=== PATIENT | female | born 1970 | race Two or more races ===

== ENCOUNTER 2020-07-21 10:42 | Inpatient (IN) | payer MEDICAID ==
[~2020-07-21] VITALS: Ht 167.6 cm; Wt 105.8 kg
[~2020-07-21 10:42] MED LIST: ARIP400S IM
[2020-07-22 17:12] VITALS: BP 143/71
[2020-07-22] MEDS: LORazepam 2 MG TABLET PO PRN (17:20)
[2020-07-22] MEDS: HALOPERIDOL 5 MG TABLET PO PRN (17:20)
[2020-07-22] MEDS ORDERED: PNEUMOCOCCAL VACCINE POLYVALENT 0.5 ML VIAL [PPSV23] IM ONE (17:45)
[2020-07-22] MEDS: AmLODIPine BESYLATE 2.5 MG TABLET PO SCH (18:44)
[2020-07-22 21:26] LABS: GLUCOMETER DEV NAME(LOC) BV3S.; GLUCOSE,POINT OF CARE 171 MG/DL (70-110)
[2020-07-23 04:06] VITALS: BP 128/76
[2020-07-23 06:30] LABS: GLUCOMETER DEV NAME(LOC) BV3S.; GLUCOSE,POINT OF CARE 138 MG/DL (70-110)
[2020-07-23] MEDS ORDERED: PETROLATUM,WHITE 28 GM JELLY TP PRN (08:00)
[2020-07-23] MEDS ORDERED: LOPERAMIDE HCL 2 MG CAPSULE PO PRN (08:00)
[2020-07-23] MEDS ORDERED: ALBUTEROL SULFATE HFA 90 MCG/PUFF 8 GM INHALER IH PRN (08:00)
[2020-07-23] MEDS ORDERED: CloNIDine HCL 0.1 MG TABLET PO PRN (08:00)
[2020-07-23] MEDS ORDERED: GuaiFENesin/D-METHORPHAN [SUGAR-FREE] 200-20MG/10 ML SYRUP UDCUP PO PRN (08:00)
[2020-07-23] MEDS ORDERED: NICOTINE 14 MG/24 HOUR PATCH TD PRN (08:00)
[2020-07-23] MEDS ORDERED: MAGNESIUM HYDROXIDE SUSPENSION 30 ML UDCUP PO PRN (08:00)
[2020-07-23] MEDS ORDERED: DOCUSATE SODIUM 100 MG CAPSULE PO PRN (08:00)
[2020-07-23] MEDS ORDERED: ONDANSETRON HCL 4 MG TABLET PO PRN (08:00)
[2020-07-23] MEDS ORDERED: MAG HYDROX/AL HYDROX/SIMETH ES 30 ML SUSPENSION UDCUP PO PRN (08:00)
[2020-07-23 08:25] VITALS: BP 150/68
[2020-07-23] MEDS: AmLODIPine BESYLATE 2.5 MG TABLET PO SCH (08:29)
[2020-07-23] MEDS: CEPHALEXIN MONOHYDRATE 500 MG CAPSULE PO SCH ×3 (08:29→17:05)
[2020-07-23] MEDS: IBUPROFEN 400 MG TABLET PO PRN (09:08)
[2020-07-23] MEDS: LORazepam 2 MG TABLET PO PRN (12:04)
[2020-07-23] MEDS: HALOPERIDOL 5 MG TABLET PO PRN (12:04)
[2020-07-23] MEDS: ACETAMINOPHEN 325 MG TABLET PO PRN (12:04)
[2020-07-23] MEDS: ARIPiprazole 10 MG TABLET PO SCH (12:06)
[2020-07-23] MEDS ORDERED: DEXTROSE 50%-WATER 25 GM/50 ML SYRINGE IVP PRN (15:30)
[2020-07-23 16:07] VITALS: BP 140/91
[2020-07-23 16:43] LABS: GLUCOMETER DEV NAME(LOC) BV3S.; GLUCOSE,POINT OF CARE 138 MG/DL (70-110)
[2020-07-23 20:19] LABS: GLUCOMETER DEV NAME(LOC) BV3S.; GLUCOSE,POINT OF CARE 147 MG/DL (70-110)
[2020-07-23] MEDS: INSULIN LISPRO 100 UNITS/ML SQ PRN (21:08)
[2020-07-24 03:31] VITALS: BP 125/73
[2020-07-24 06:53] LABS: GLUCOMETER DEV NAME(LOC) BV3S.; GLUCOSE,POINT OF CARE 142 MG/DL (70-110)
[2020-07-24] MEDS: INSULIN LISPRO 100 UNITS/ML SQ PRN (06:55)
[2020-07-24 08:12] VITALS: BP 130/82
[2020-07-24] MEDS: LORazepam 2 MG TABLET PO PRN (08:27)
[2020-07-24] MEDS: ARIPiprazole 10 MG TABLET PO SCH (08:27)
[2020-07-24] MEDS: HALOPERIDOL 5 MG TABLET PO PRN (08:27)
[2020-07-24] MEDS: AmLODIPine BESYLATE 2.5 MG TABLET PO SCH (08:27)
[2020-07-24] MEDS: LEVOFLOXACIN 500 MG TABLET PO SCH (08:27)
[2020-07-24 11:03] LABS: GLUCOMETER DEV NAME(LOC) BV3S.; GLUCOSE,POINT OF CARE 115 MG/DL (70-110)
[2020-07-24 12:05] VITALS: BP 139/72
[2020-07-24] MEDS: IBUPROFEN 400 MG TABLET PO PRN (12:09)
[2020-07-24 13:10] VITALS: BP 132/70
[2020-07-24 16:03] VITALS: BP 130/83
[2020-07-24 16:21] LABS: GLUCOMETER DEV NAME(LOC) BV3S.; GLUCOSE,POINT OF CARE 130 MG/DL (70-110)
[2020-07-24] MEDS: MUPIROCIN CALCIUM 2% 22 GM OINTMENT NASAL SCH (19:30)
[2020-07-24] MEDS: ZOLPIDEM TARTRATE 10 MG TABLET PO PRN (22:39)
[2020-07-24 23:09] LABS: GLUCOMETER DEV NAME(LOC) BV3S.; GLUCOSE,POINT OF CARE 164 MG/DL (70-110)
[2020-07-25 02:38] VITALS: BP 127/78
[2020-07-25] MEDS: LORazepam 2 MG TABLET PO PRN ×2 (08:31→20:42)
[2020-07-25] MEDS: ARIPiprazole 10 MG TABLET PO SCH (08:31)
[2020-07-25] MEDS: LEVOFLOXACIN 500 MG TABLET PO SCH (08:31)
[2020-07-25] MEDS: AmLODIPine BESYLATE 2.5 MG TABLET PO SCH (08:31)
[2020-07-25] MEDS: MUPIROCIN CALCIUM 2% 22 GM OINTMENT NASAL SCH ×2 (08:32→16:24)
[2020-07-25 08:55] VITALS: BP 114/69
[2020-07-25] MEDS: INSULIN LISPRO 100 UNITS/ML SQ PRN ×2 (11:54→21:06)
[2020-07-25 12:03] LABS: GLUCOMETER DEV NAME(LOC) BV3S.; GLUCOSE,POINT OF CARE 173 MG/DL (70-110)
[2020-07-25] MEDS ORDERED: DiphenhydrAMINE HCL 50 MG/ML VIAL ONE (15:09)
[2020-07-25] MEDS ORDERED: LORazepam 2 MG/ML VIAL ONE (15:09)
[2020-07-25] MEDS ORDERED: HALOPERIDOL LACTATE 5 MG/ML VIAL ONE (15:09)
[2020-07-25] MEDS ORDERED: LORazepam 2 MG/ML VIAL IM ONE (15:10)
[2020-07-25] MEDS ORDERED: HALOPERIDOL LACTATE 5 MG/ML VIAL IM ONE (15:10)
[2020-07-25] MEDS ORDERED: DiphenhydrAMINE HCL 50 MG/ML VIAL IM ONE (15:10)
[2020-07-25 16:03] VITALS: BP 125/88
[2020-07-25 16:34] LABS: GLUCOMETER DEV NAME(LOC) BV3S.; GLUCOSE,POINT OF CARE 140 MG/DL (70-110)
[2020-07-25 20:30] LABS: GLUCOMETER DEV NAME(LOC) BV3S.; GLUCOSE,POINT OF CARE 168 MG/DL (70-110)
[2020-07-26 08:05] VITALS: BP 132/74
[2020-07-26] MEDS: MUPIROCIN CALCIUM 2% 22 GM OINTMENT NASAL SCH ×2 (08:18→17:05)
[2020-07-26] MEDS: LEVOFLOXACIN 500 MG TABLET PO SCH (08:18)
[2020-07-26] MEDS: ARIPiprazole 10 MG TABLET PO SCH (08:18)
[2020-07-26] MEDS: AmLODIPine BESYLATE 2.5 MG TABLET PO SCH (08:18)
[2020-07-26] MEDS: LORazepam 2 MG TABLET PO PRN ×2 (08:19→17:31)
[2020-07-26 11:04] LABS: GLUCOMETER DEV NAME(LOC) BV3S.; GLUCOSE,POINT OF CARE 148 MG/DL (70-110)
[2020-07-26] MEDS: INSULIN LISPRO 100 UNITS/ML SQ PRN ×3 (11:24→20:41)
[2020-07-26 16:14] VITALS: BP 112/65
[2020-07-26] MEDS: HALOPERIDOL 5 MG TABLET PO PRN (17:31)
[2020-07-26 18:17] LABS: GLUCOMETER DEV NAME(LOC) BV3S.; GLUCOSE,POINT OF CARE 191 MG/DL (70-110)
[2020-07-26 20:38] LABS: GLUCOMETER DEV NAME(LOC) BV3S.; GLUCOSE,POINT OF CARE 157 MG/DL (70-110)
[2020-07-26] MEDS: ZOLPIDEM TARTRATE 10 MG TABLET PO PRN (20:39)
[2020-07-27 03:42] VITALS: BP 106/66
[2020-07-27 08:20] VITALS: BP 121/79
[2020-07-27] MEDS: ARIPiprazole 15 MG TABLET PO SCH (08:35)
[2020-07-27] MEDS: MUPIROCIN CALCIUM 2% 22 GM OINTMENT NASAL SCH ×2 (08:35→16:26)
[2020-07-27] MEDS: AmLODIPine BESYLATE 2.5 MG TABLET PO SCH (08:36)
[2020-07-27] MEDS: LEVOFLOXACIN 500 MG TABLET PO SCH (08:36)
[2020-07-27] MEDS: HALOPERIDOL 5 MG TABLET PO PRN (12:54)
[2020-07-27] MEDS: LORazepam 2 MG TABLET PO PRN (12:54)
[2020-07-27 16:10] VITALS: BP 118/74
[2020-07-27 16:37] LABS: GLUCOMETER DEV NAME(LOC) BV3S.; GLUCOSE,POINT OF CARE 104 MG/DL (70-110)
[2020-07-28 06:04] VITALS: BP 127/79
[2020-07-28 06:15] LABS: GLUCOMETER DEV NAME(LOC) BV3S.; GLUCOSE,POINT OF CARE 168 MG/DL (70-110)
[2020-07-28] MEDS: IBUPROFEN 400 MG TABLET PO PRN ×2 (06:16→20:30)
[2020-07-28 06:58] LABS: EOSINOPHILS % (AUTO) 9.3 % (1.0-6.0); HEMATOCRIT 41.2 % (36-46); HEMOGLOBIN 13.4 g/dL (12.0-16.0); LYMPHOCYTES # (AUTO) 2.1 K/uL (1.0-4.8); LYMPHOCYTES % (AUTO) 33.3 % (22.0-44.0); MEAN CORPUSCULAR HEMOGLOBIN 25.5 pg (26.0-34.0); MEAN CORPUSCULAR HGB CONC 32.6 G/dL (31.0-37.0); MEAN CORPUSCULAR VOLUME 78 fL (80-100); MONOCYTES # (AUTO) 0.6 K/uL (0.1-1.0); MONOCYTES % (AUTO) 9.1 % (2.0-9.0); NEUTROPHILS % (AUTO) 47.3 % (40.0-70.0); PLATELET COUNT (AUTO) 286 K/uL (150-450); RED BLOOD CELL COUNT(AUTO) 5.25 MIL/uL (4.00-5.20); RED CELL DISTRIBUTION WIDTH 16.1 % (11.5-14.5)
[2020-07-28 07:27] LABS: HEMOGLOBIN A1C 7.2 % (3.8-5.6)
[2020-07-28 07:34] LABS: ALANINE AMINOTRANSFERASE 60 U/L (12-78); ALBUMIN 3.3 g/dL (3.4-5.0); ALKALINE PHOSPHATASE 106 U/L (46-116); ANION GAP 5 mmol/L (8-16); ASPARTATE AMINOTRANSFERASE 33 U/L (15-37); BILIRUBIN,TOTAL 0.5 mg/dL (0.1-1.0); CARBON DIOXIDE 25 mmol/L (22-29); CHLORIDE 102 mmol/L (98-107); CREATININE 0.73 mg/dL (0.60-1.30); GLOMERULAR FILTR. RATE CALC > 60 mL/min (>60); GLUCOSE,RANDOM 164 mg/dL (70-110); HCG,QUANTITATIVE 2 mIU/mL (0-6); SODIUM SERUM 132 mmol/L (136-145); TOTAL PROTEIN, SERUM 7.3 g/dL (6.4-8.2); UREA NITROGEN, BLOOD 16 mg/dL (7-18)
[2020-07-28] MEDS: ARIPiprazole 15 MG TABLET PO SCH (08:12)
[2020-07-28] MEDS: AmLODIPine BESYLATE 2.5 MG TABLET PO SCH (08:12)
[2020-07-28] MEDS: LEVOFLOXACIN 500 MG TABLET PO SCH (08:12)
[2020-07-28] MEDS: MUPIROCIN CALCIUM 2% 22 GM OINTMENT NASAL SCH ×2 (08:13→17:19)
[2020-07-28 08:18] VITALS: BP 120/74
[2020-07-28 11:14] LABS: GLUCOMETER DEV NAME(LOC) BV3S.; GLUCOSE,POINT OF CARE 127 MG/DL (70-110)
[2020-07-28 17:02] VITALS: BP 132/81
[2020-07-28] MEDS: INSULIN LISPRO 100 UNITS/ML SQ PRN (17:30)
[2020-07-28] MEDS: HALOPERIDOL 5 MG TABLET PO PRN (17:31)
[2020-07-28] MEDS: LORazepam 2 MG TABLET PO PRN (17:31)
[2020-07-28] MEDS: ACETAMINOPHEN 325 MG TABLET PO PRN (17:37)
[2020-07-28 17:41] LABS: GLUCOMETER DEV NAME(LOC) BV3S.; GLUCOSE,POINT OF CARE 201 MG/DL (70-110)
[2020-07-28] MEDS: ZOLPIDEM TARTRATE 10 MG TABLET PO PRN (20:16)
[2020-07-28] MEDS: DIVALPROEX SODIUM 500 MG DR TABLET PO SCH (20:32)
[2020-07-28 20:34] LABS: GLUCOMETER DEV NAME(LOC) BV3S.; GLUCOSE,POINT OF CARE 182 MG/DL (70-110)
[2020-07-29 01:04] VITALS: BP 128/79
[2020-07-29] MEDS ORDERED: GLUCAGON,HUMAN RECOMBINANT 1 MG VIAL IM PRN ×2 (01:15→01:45)
[2020-07-29] MEDS ORDERED: INSULIN LISPRO 100 UNITS/ML SQ PRN (01:15)
[2020-07-29 06:38] LABS: GLUCOMETER DEV NAME(LOC) BV3S.; GLUCOSE,POINT OF CARE 136 MG/DL (70-110)
[2020-07-29 08:30] VITALS: BP 121/67
[2020-07-29] MEDS: AmLODIPine BESYLATE 2.5 MG TABLET PO SCH (08:55)
[2020-07-29] MEDS: ARIPiprazole 15 MG TABLET PO SCH (08:55)
[2020-07-29] MEDS: DIVALPROEX SODIUM 500 MG DR TABLET PO SCH ×2 (08:55→20:08)
[2020-07-29] MEDS: MUPIROCIN CALCIUM 2% 22 GM OINTMENT NASAL SCH ×2 (08:55→16:35)
[2020-07-29] MEDS: LORazepam 2 MG TABLET PO PRN ×2 (09:27→17:17)
[2020-07-29 12:00] LABS: GLUCOMETER DEV NAME(LOC) BV3S.; GLUCOSE,POINT OF CARE 131 MG/DL (70-110)
[2020-07-29 16:15] VITALS: BP 142/83
[2020-07-29 16:51] LABS: GLUCOMETER DEV NAME(LOC) BV3S.; GLUCOSE,POINT OF CARE 173 MG/DL (70-110)
[2020-07-29] MEDS: INSULIN LISPRO 100 UNITS/ML SQ PRN (17:19)
[2020-07-29] MEDS: IBUPROFEN 400 MG TABLET PO PRN (18:49)
[2020-07-29 20:09] LABS: GLUCOMETER DEV NAME(LOC) BV3S.; GLUCOSE,POINT OF CARE 179 MG/DL (70-110)
[2020-07-30 01:18] VITALS: BP 124/80
[2020-07-30 05:57] LABS: GLUCOMETER DEV NAME(LOC) BV3S.; GLUCOSE,POINT OF CARE 142 MG/DL (70-110)
[2020-07-30 08:26] VITALS: BP 137/66
[2020-07-30] MEDS: ARIPiprazole 15 MG TABLET PO SCH (09:00)
[2020-07-30] MEDS: DIVALPROEX SODIUM 500 MG DR TABLET PO SCH ×2 (09:00→20:36)
[2020-07-30] MEDS: AmLODIPine BESYLATE 2.5 MG TABLET PO SCH (09:01)
[2020-07-30] MEDS: MUPIROCIN CALCIUM 2% 22 GM OINTMENT NASAL SCH ×2 (09:01→16:49)
[2020-07-30] MEDS: LORazepam 2 MG TABLET PO PRN (09:37)
[2020-07-30 12:21] LABS: GLUCOMETER DEV NAME(LOC) BV3S.; GLUCOSE,POINT OF CARE 134 MG/DL (70-110)
[2020-07-30 16:09] VITALS: BP 108/64
[2020-07-30 16:43] LABS: GLUCOMETER DEV NAME(LOC) BV3S.; GLUCOSE,POINT OF CARE 154 MG/DL (70-110)
[2020-07-30] MEDS: INSULIN LISPRO 100 UNITS/ML SQ PRN (16:48)
[2020-07-30] MEDS: ZOLPIDEM TARTRATE 10 MG TABLET PO PRN (20:36)
[2020-07-30 20:42] LABS: GLUCOMETER DEV NAME(LOC) BV3S.; GLUCOSE,POINT OF CARE 136 MG/DL (70-110)
[2020-07-31 01:11] VITALS: BP 102/66
[2020-07-31] MEDS: INSULIN LISPRO 100 UNITS/ML SQ PRN (06:25)
[2020-07-31 06:34] LABS: GLUCOMETER DEV NAME(LOC) BV3S.; GLUCOSE,POINT OF CARE 141 MG/DL (70-110)
[2020-07-31 09:00] VITALS: BP 116/70
[2020-07-31] MEDS: MUPIROCIN CALCIUM 2% 22 GM OINTMENT NASAL SCH (09:08)
[2020-07-31] MEDS: AmLODIPine BESYLATE 2.5 MG TABLET PO SCH (09:09)
[2020-07-31] MEDS: DIVALPROEX SODIUM 500 MG DR TABLET PO SCH ×2 (09:09→20:55)
[2020-07-31] MEDS: ARIPiprazole 15 MG TABLET PO SCH (09:11)
[2020-07-31] MEDS: LORazepam 2 MG TABLET PO PRN (09:33)
[2020-07-31 12:52] LABS: GLUCOMETER DEV NAME(LOC) BV3S.; GLUCOSE,POINT OF CARE 174 MG/DL (70-110)
[2020-07-31 17:35] VITALS: BP 100/60
[2020-08-01] MEDS: INSULIN LISPRO 100 UNITS/ML SQ PRN ×4 (06:40→20:40)
[2020-08-01 06:45] LABS: GLUCOMETER DEV NAME(LOC) BV3S.; GLUCOSE,POINT OF CARE 224 MG/DL (70-110)
[2020-08-01] MEDS: DIVALPROEX SODIUM 500 MG DR TABLET PO SCH ×2 (08:11→20:28)
[2020-08-01] MEDS: AmLODIPine BESYLATE 2.5 MG TABLET PO SCH (08:11)
[2020-08-01] MEDS: ARIPiprazole 15 MG TABLET PO SCH (08:11)
[2020-08-01] MEDS: LORazepam 2 MG TABLET PO PRN (08:17)
[2020-08-01] MEDS: HALOPERIDOL 5 MG TABLET PO PRN (08:17)
[2020-08-01] MEDS ORDERED: ChlorproMAZINE HCL 50 MG/2 ML AMP IM ONE (10:00)
[2020-08-01] MEDS ORDERED: LORazepam 2 MG/ML VIAL IM ONE (10:00)
[2020-08-01] MEDS ORDERED: DiphenhydrAMINE HCL 50 MG/ML VIAL IM ONE (10:00)
[2020-08-01 11:21] LABS: GLUCOMETER DEV NAME(LOC) BV3S.; GLUCOSE,POINT OF CARE 177 MG/DL (70-110)
[2020-08-01 17:00] LABS: GLUCOMETER DEV NAME(LOC) BV3S.; GLUCOSE,POINT OF CARE 83 MG/DL (70-110)
[2020-08-01 20:37] LABS: GLUCOMETER DEV NAME(LOC) BV3S.; GLUCOSE,POINT OF CARE 179 MG/DL (70-110)
[2020-08-02 01:48] VITALS: BP 120/68
[2020-08-02 06:33] LABS: GLUCOMETER DEV NAME(LOC) BV3S.; GLUCOSE,POINT OF CARE 133 MG/DL (70-110)
[2020-08-02] MEDS: AmLODIPine BESYLATE 2.5 MG TABLET PO SCH (09:40)
[2020-08-02] MEDS: HALOPERIDOL 5 MG TABLET PO PRN ×2 (09:40→20:47)
[2020-08-02] MEDS: ARIPiprazole 15 MG TABLET PO SCH (09:40)
[2020-08-02] MEDS: LORazepam 2 MG TABLET PO PRN ×2 (09:40→20:47)
[2020-08-02] MEDS: DIVALPROEX SODIUM 500 MG DR TABLET PO SCH ×2 (09:40→20:56)
[2020-08-02 11:03] LABS: GLUCOMETER DEV NAME(LOC) BV3S.; GLUCOSE,POINT OF CARE 133 MG/DL (70-110)
[2020-08-02 16:05] VITALS: BP 120/64
[2020-08-02 16:48] LABS: GLUCOMETER DEV NAME(LOC) BV3S.; GLUCOSE,POINT OF CARE 198 MG/DL (70-110)
[2020-08-02] MEDS: INSULIN LISPRO 100 UNITS/ML SQ PRN (20:20)
[2020-08-02 20:21] LABS: GLUCOMETER DEV NAME(LOC) BV3S.; GLUCOSE,POINT OF CARE 174 MG/DL (70-110)
[2020-08-03] MEDS: LORazepam 2 MG TABLET PO PRN ×2 (08:48→15:41)
[2020-08-03] MEDS: AmLODIPine BESYLATE 2.5 MG TABLET PO SCH (08:48)
[2020-08-03] MEDS: ARIPiprazole 15 MG TABLET PO SCH (08:48)
[2020-08-03] MEDS: DIVALPROEX SODIUM 500 MG DR TABLET PO SCH ×2 (08:48→20:23)
[2020-08-03 12:01] LABS: GLUCOMETER DEV NAME(LOC) BV3S.; GLUCOSE,POINT OF CARE 136 MG/DL (70-110)
[2020-08-03] MEDS: INSULIN LISPRO 100 UNITS/ML SQ PRN ×2 (12:07→20:59)
[2020-08-03] MEDS: HALOPERIDOL 5 MG TABLET PO PRN (15:41)
[2020-08-03 16:17] VITALS: BP 125/78
[2020-08-03 20:32] LABS: GLUCOMETER DEV NAME(LOC) BV3S.; GLUCOSE,POINT OF CARE 147 MG/DL (70-110)
[2020-08-04 00:39] VITALS: BP 120/72
[2020-08-04 07:10] LABS: GLUCOMETER DEV NAME(LOC) BV3S.; GLUCOSE,POINT OF CARE 135 MG/DL (70-110)
[2020-08-04 08:03] LABS: APPEARANCE,URINE TURBID (CLEAR); BILIRUBIN,URINE NEGATIVE (NEGATIVE); GLUCOSE, URINE (UA) NEGATIVE (NEGATIVE); KETONES,URINE NEGATIVE (NEGATIVE); LEUKOCYTE ESTERASE ,URINE NEGATIVE (NEGATIVE); NITRATE,URINE NEGATIVE (NEGATIVE); OCCULT BLOOD,URINE NEGATIVE (NEGATIVE); PROTEIN,URINE NEGATIVE (NEGATIVE); UROBILINOGEN,URINE 0.2 mg/dL (<=1.0)
[2020-08-04 08:09] LABS: AMPHET/METH SCREEN,URINE NEGATIVE (NEGATIVE); BARBITURATE SCREEN, URINE NEGATIVE (NEGATIVE); BENZODIAZEPINES SCREEN,URINE NEGATIVE (NEGATIVE); CANNABINOID SCREEN,URINE NEGATIVE (NEGATIVE); COCAINE SCREEN,URINE NEGATIVE (NEGATIVE); METHADONE SCREEN, URINE NEGATIVE (NEGATIVE); OPIATE SCREEN,URINE NEGATIVE (NEGATIVE)
[2020-08-04 08:11] LABS: PHENCYCLIDINE SCREEN,URINE NEGATIVE (NEGATIVE)
[2020-08-04] MEDS: AmLODIPine BESYLATE 2.5 MG TABLET PO SCH (08:23)
[2020-08-04] MEDS: HALOPERIDOL 5 MG TABLET PO PRN (08:23)
[2020-08-04] MEDS: LORazepam 2 MG TABLET PO PRN (08:23)
[2020-08-04] MEDS: DIVALPROEX SODIUM 500 MG DR TABLET PO SCH ×2 (08:24→20:08)
[2020-08-04] MEDS: ARIPiprazole 15 MG TABLET PO SCH (08:24)
[2020-08-04 08:58] VITALS: BP 122/71
[2020-08-04 09:35] LABS: RBC,URINE None Seen /HPF (0-2); WBC,URINE None Seen /HPF (0-5)
[2020-08-04 09:36] LABS: AMORPHOUS SEDIMENT,UR Few /LPF (None Seen); BACTERIA,URINE None Seen /HPF (None Seen); SQUAMOUS EPITHELIAL CELL,UR Few /LPF (None Seen)
[2020-08-04] MEDS: INSULIN LISPRO 100 UNITS/ML SQ PRN ×3 (11:30→21:00)
[2020-08-05 01:05] VITALS: BP 120/68
[2020-08-05 06:30] LABS: GLUCOMETER DEV NAME(LOC) BV3S.; GLUCOSE,POINT OF CARE 132 MG/DL (70-110)
[2020-08-05 08:05] VITALS: BP 108/73
[2020-08-05] MEDS: LORazepam 2 MG TABLET PO PRN (08:51)
[2020-08-05] MEDS: ARIPiprazole 15 MG TABLET PO SCH (08:51)
[2020-08-05] MEDS: HALOPERIDOL 5 MG TABLET PO PRN (08:51)
[2020-08-05] MEDS: DIVALPROEX SODIUM 500 MG DR TABLET PO SCH ×2 (08:51→20:20)
[2020-08-05] MEDS: AmLODIPine BESYLATE 2.5 MG TABLET PO SCH (08:52)
[2020-08-05] MEDS: INSULIN LISPRO 100 UNITS/ML SQ PRN ×2 (13:59→17:55)
[2020-08-05 14:06] LABS: GLUCOMETER DEV NAME(LOC) BV3S.; GLUCOSE,POINT OF CARE 196 MG/DL (70-110)
[2020-08-05 16:04] VITALS: BP 130/70
[2020-08-05 18:04] LABS: GLUCOMETER DEV NAME(LOC) BV3S.; GLUCOSE,POINT OF CARE 203 MG/DL (70-110)
[2020-08-06] MEDS ORDERED: HALOPERIDOL LACTATE 5 MG/ML VIAL ONE (00:05)
[2020-08-06] MEDS ORDERED: HALOPERIDOL LACTATE 5 MG/ML VIAL IM ONE (00:15)
[2020-08-06] MEDS ORDERED: DiphenhydrAMINE HCL 50 MG/ML VIAL IM ONE (00:15)
[2020-08-06] MEDS ORDERED: LORazepam 2 MG/ML VIAL IM ONE (00:15)
[2020-08-06 05:05] VITALS: BP 125/67
[2020-08-06 08:34] VITALS: BP 132/86
[2020-08-06] MEDS: DIVALPROEX SODIUM 500 MG DR TABLET PO SCH ×3 (09:00→20:43)
[2020-08-06] MEDS: ARIPiprazole 15 MG TABLET PO SCH ×2 (09:00→09:53)
[2020-08-06] MEDS: AmLODIPine BESYLATE 2.5 MG TABLET PO SCH (09:53)
[2020-08-06 11:32] LABS: GLUCOMETER DEV NAME(LOC) BV3S.; GLUCOSE,POINT OF CARE 134 MG/DL (70-110)
[2020-08-06 16:16] VITALS: BP 101/61
[2020-08-06] MEDS: INSULIN LISPRO 100 UNITS/ML SQ PRN ×2 (17:25→20:42)
[2020-08-06 17:33] LABS: GLUCOMETER DEV NAME(LOC) BV3S.; GLUCOSE,POINT OF CARE 187 MG/DL (70-110)
[2020-08-06 20:49] LABS: GLUCOMETER DEV NAME(LOC) BV3S.; GLUCOSE,POINT OF CARE 178 MG/DL (70-110)
[2020-08-07 04:00] VITALS: BP 108/64
[2020-08-07 06:51] LABS: GLUCOMETER DEV NAME(LOC) BV3S.; GLUCOSE,POINT OF CARE 132 MG/DL (70-110)
[2020-08-07 08:06] VITALS: BP 111/57
[2020-08-07] MEDS: DIVALPROEX SODIUM 500 MG DR TABLET PO SCH (08:19)
[2020-08-07] MEDS: HALOPERIDOL 5 MG TABLET PO PRN (08:19)
[2020-08-07] MEDS: AmLODIPine BESYLATE 2.5 MG TABLET PO SCH (08:19)
[2020-08-07] MEDS: ARIPiprazole 15 MG TABLET PO SCH (08:19)
[2020-08-07] MEDS: LORazepam 2 MG TABLET PO PRN (08:19)
[2020-08-07] MEDS ORDERED: ARIP15TA2 PO (09:15)
[2020-08-07] MEDS ORDERED: DIVA-112 PO (09:15)
[2020-08-07] MEDS: INSULIN LISPRO 100 UNITS/ML SQ PRN (11:30)
[2020-08-07] MEDS ORDERED: AMLO2.5T96 PO (12:35)
== END 2020-08-07 13:30 | disposition home or self-care (01) | DRG 750 ==
LOC: B3A 07-22 17:12
DX: F20.0 Paranoid schizophrenia (principal); E11.9 Type 2 diabetes mellitus without complications; E87.1 Hypo-osmolality and hyponatremia; F10.10 Alcohol abuse, uncomplicated; K21.9 Gastro-esophageal reflux disease without esophagitis; I10 Essential (primary) hypertension; Z59.0 Homelessness; Z79.4 Long term (current) use of insulin; Z79.899 Other long term (current) drug therapy
CPT/HCPCS: 80307; 83036; 86592; 87081; 87147; J1200; J1630; J2060; J3230